=== PATIENT | female | born 1965 | race Two or more races ===

== ENCOUNTER 2016-10-27 12:14 | Emergency (ER) | payer OTHER ==
[2016-10-27 12:20] VITALS: TEMP 98.4; BMI 26.2
--- NOTE | 2016-10-27 13:18 | PDOC ---
History of Present Illness - General Chief Complaint: Sore Throat Stated Complaint: cough, sore throat Time Seen by Provider: 10/27/16 13:03 - History of Present Illness Initial Comments: 10/27/16 13:14 51-year-old female with a past medical history of hypertension She states that she did have the flu shot this year Patient states that yesterday evening, she developed sore throat, dry cough, runny nose, chills without fever, myalgias, and diminished appetite, although she is drinking fluids She denies any vomiting or diarrhea, she denies any fever She denies any abdominal pain She denies any urinary symptoms SHe denies any earache Remainder of the review of systems is negative Past History - Past Medical History Allergies/Adverse Reactions: Allergies Allergy/AdvReac Type Severity Reaction Status Date / Time No Known Allergies Allergy Verified 10/27/16 12:15 Home Medications: Ambulatory Orders Losartan Potassium [Cozaar] 50 mg PO DAILY 10/27/16 HTN: Yes - Immunization History Td Vaccination: No Immunization Up to Date: Yes - Psycho/Social/Smoking Cessation Hx Anxiety: No Suicidal Ideation: No Smoking Status: No Smoking History: Never smoked Number of Cigarettes Smoked Daily: 0 Cigars Per Day: 0 Hx Alcohol Use: No Drug/Substance Use Hx: No Substance Use Type: None Hx Substance Use Treatment: No *Physical Exam - Vital Signs Last Vital Signs Temp Pulse Resp BP Pulse Ox 98.4 F 113 H 16 169/92 100 10/27/16 12:15 10/27/16 12:15 10/27/16 12:15 10/27/16 12:15 10/27/16 12:15 - Physical Exam Comments: 10/27/16 13:15 Physical exam Last Vital Signs Temp Pulse Resp BP Pulse Ox 98.4 F 113 H 16 169/92 100 10/27/16 12:15 10/27/16 12:15 10/27/16 12:15 10/27/16 12:15 10/27/16 12:15 GENERAL: The patient is awake, alert, and fully oriented, and in no apparent distress. HEAD: Normal with no signs of trauma. EYES: Sclera anicteric, conjunctiva normal ENT: Throat is mildly erythematous, without exudate Mucous membranes are moist, TMs nml NECK: Normal range of motion, supple without lymphadenopathy, LUNGS: Breath sounds equal, clear to auscultation bilaterally. No wheezes, and no crackles. HEART: Regular rate and rhythm, normal S1 and S2 without murmur, rub or gallop. ABDOMEN: Soft, nontender, normoactive bowel sounds. No guarding, no rebound. No masses appreciated. NEUROLOGICAL: Cranial nerves II through XII grossly intact. Normal speech, normal gait. Grossly nonfocal neurologic exam PSYCH: Normal mood, normal affect. SKIN: Warm, Dry, no rashes ED Treatment Course - ADDITIONAL ORDERS Additional order review: 10/27/16 12:28 Group A Strep Rapid Antigen - Final Throat Medical Decision Making - Medical Decision Making 10/27/16 13:17 51-year-old female with influenza-like illness She did have the flu shot this year Patient appears mildly dehydrated, and on physical exam, there is no clinical indication for antibiotics at this time Will recheck vital signs Patient is able to drink water without difficulty - drank water bottle 10/27/16 13:44 Vital Signs - 24 hr 10/27/16 10/27/16 12:15 13:37 Temperature 98.4 F Pulse Rate 113 H Pulse Rate [ 94 H Right] Respiratory 16 18 Rate Blood Pressure 169/92 Blood Pressure 151/84 [Left Arm] O2 Sat by Pulse 100 100 Oximetry (%) Influenza swab still pending Strep negative Influenza A and B- negative Yxpcjxewbg-mzkeaduqv-gjbp illness *DC/Admit/Observation/Transfer Diagnosis at time of Disposition: Influenza-like illness - Discharge Dispostion Disposition: HOME Condition at time of disposition: Stable - Referrals Referrals: Ranjith Nascimento MD [Primary Care Provider] - - Patient Instructions Printed Discharge Instructions: Influenza Additional Instructions: Rest, increase fluid intake, Tylenol or Motrin for the chills Any [id number]-[id number] cough and cold preparation if needed ,( Please beware as some of these medications do have extra Tylenol in them) Followup with your primary care physician in 24-48 hours Return immediately if you worsen in any way Take your medications as directed - Post Discharge Activity Work/School Note: Back to Work
[2016-10-27 13:38] VITALS: BP 151/84; PULSE 94
== END 2016-10-27 13:53 | disposition home or self-care (01) ==
LOC: FER 12:14
DX: J11.1 Influenza due to unidentified influenza virus with other respiratory manifestations (principal); I10 Essential (primary) hypertension
CPT/HCPCS: 87070; 87430; 87804; 99282-25

== ENCOUNTER 2017-05-25 12:35 | Emergency (ER) | payer OTHER ==
[2017-05-25 12:49] VITALS: TEMP 97.4; BMI 27.5
--- NOTE | 2017-05-25 13:31 | PDOC ---
History of Present Illness - General Chief Complaint: Headache Stated Complaint: HEADACHE & LEFT UPPER CHEST PAIN Time Seen by Provider: 05/25/17 13:31 - History of Present Illness Initial Comments: 05/25/17 13:41 52yo F hx HTN, headaches p/w progressive pressure like frontal headache wrapping around the back of her head for months, worse last night. Pt reports previous headaches respond to 400mg of motrin, however she reports no relief with motrin last night. The headache became progressively worse last night prompting her to check her BP at work which she found to be 149/90. THis prompted her to take an extra dose of cozaar. +photophobia. This morning, due to persistence of the headache, she took another dose of cozaar and came to the emergency department. She has not seen her PMD or a neurologist for these headaches. Denies any focal weakness. She drinks 3 cups of coffee a day, has not drank any coffee today. Denies any sudden worsening of pain, N/V stiff neck , dizziness, gait instability. Pt also reports 3 seconds of L sternal non radiating non pleuritic dull CP last night that self resolved when she was sitting at work. Denies SOB, abd pain, diaphoresis, headache, LE edema, rashes. Has never had CP before. Denies hx cardiac disease. Social: denies etoh, tobacco, illicit drugs. Works as a nurse Allergies: NKDA Past History - Past Medical History Allergies/Adverse Reactions: Allergies Allergy/AdvReac Type Severity Reaction Status Date / Time No Known Allergies Allergy Verified 10/27/16 12:15 Home Medications: Ambulatory Orders Losartan Potassium [Cozaar] 50 mg PO DAILY 10/27/16 Cholecalciferol (Vitamin D3) [Vitamin D3] 5,000 unit PO HS 05/25/17 HTN: Yes Other medical history: Neck strain. - Immunization History Td Vaccination: No Immunization Up to Date: Yes - Psycho/Social/Smoking Cessation Hx Anxiety: No Suicidal Ideation: No Smoking Status: No Smoking History: Never smoked Number of Cigarettes Smoked Daily: 0 Cigars Per Day: 0 Hx Alcohol Use: No Drug/Substance Use Hx: No Substance Use Type: None Hx Substance Use Treatment: No Review of Systems - Review of Systems Comments:: 05/25/17 14:25 GENERAL/CONSTITUTIONAL: No fever or chills. No weakness. HEAD, EYES, EARS, NOSE AND THROAT: No change in vision. No ear pain or discharge. No sore throat.+photophobia CARDIOVASCULAR: +chest pain, no shortness of breath. RESPIRATORY: No cough, wheezing, or hemoptysis. GASTROINTESTINAL: No nausea, vomiting, diarrhea or constipation. GENITOURINARY: No dysuria, frequency, or change in urination. MUSCULOSKELETAL: No joint or muscle swelling or pain. No neck or back pain. SKIN: No rash NEUROLOGIC: +headache, no vertigo, loss of consciousness, or change in strength/ sensation. ENDOCRINE: No increased thirst. No abnormal weight change. HEMATOLOGIC/LYMPHATIC: No anemia, easy bleeding, or history of blood clots. ALLERGIC/IMMUNOLOGIC: No hives or skin allergy. *Physical Exam - Vital Signs Last Vital Signs Temp Pulse Resp BP Pulse Ox 97.4 F L 98 H 15 148/81 99 05/25/17 12:39 05/25/17 12:39 05/25/17 12:39 05/25/17 12:39 05/25/17 12:39 - Physical Exam Comments: 05/25/17 14:26 GENERAL: Awake, alert, and fully oriented, appears uncomfortable with eyes closed HEAD: No signs of trauma EYES: PERRLA, EOMI, sclera anicteric, conjunctiva clear ENT: Auricles normal inspection, hearing grossly normal, nares patent, oropharynx clear without exudates. Moist mucosa NECK: Normal ROM, supple, no lymphadenopathy, JVD, or masses LUNGS: Breath sounds equal, clear to auscultation bilaterally. No wheezes, and no crackles HEART: Regular rate and rhythm, normal S1 and S2, no murmurs, rubs or gallops ABDOMEN: Soft, nontender, normoactive bowel sounds. No guarding, no rebound. No masses EXTREMITIES: Normal range of motion, no edema. No clubbing or cyanosis. No cords, erythema, or tenderness NEUROLOGICAL: Normal speech, cranial nerves intact, negative pronator drift, 5/ 5 strength in all 4 extremities, normal sensation to light touch in all 4 extremities, normal cerebellar exam, normal gait, normal reflexes and tone SKIN: Warm, Dry, normal turgor, no rashes or lesions noted. Heart Score/ECG Review #1 05/25/17 12:54 NSR, rate 84, normal axis and intervals, no CARSON or TWI ED Treatment Course - LABORATORY CBC & Chemistry Diagram: 05/25/17 14:25 05/25/17 14:25 Medical Decision Making - Medical Decision Making 05/25/17 14:28 52-year-old female history of hypertension presents with progressive headache for months. On exam patient appears uncomfortable but is neurologically intact. Differential includes tension headache versus caffeine withdrawal headache versus mass occupying lesion in the brain. I offered the patient a CT scan however I discussed with her that a CT scan would only be able to detect larger masses and that she would need to see a neurologist for follow-up and workup of her headaches. Low concern for subarachnoid hemorrhage as headache has been gradual in onset, has been present for months, and patient does not have a stiff neck and is neurologically intact. With regards to the patient's chest pain last night, unlikely to be ACS as it lasted only 3 seconds, however the patient does have some risk factors - will check a troponin. Heart score is 2 ( HTN, family hx). EKG wnl -labs -IVF, tylenol, reglan -CTH -CXR -reassess 05/25/17 15:31 CTH with no acute pathology. Mild volume loss which is slightly atypical for patients age. I discussed these findings with the patient and advised her to follow up with a neurologist to which she agrees. Pt reports significant improvement in headache after tylenol, reglan and fluids. Lab tests pending 05/25/17 16:51 Labs unremarkable, including negative troponin. Pt reports complete resolution of headache. I discussed the physical exam findings, ancillary test results and final diagnoses with the patient. I answered all of the patient's questions. The patient was satisfied with the care received and felt comfortable with the discharge plan and treatment plan. The patient will call their primary care physician within 24 hours to arrange follow-up and will return to the Emergency Department with any new, persistent or worsening symptoms. *DC/Admit/Observation/Transfer Diagnosis at time of Disposition: Headache Qualifiers: Headache type: unspecified Headache chronicity pattern: unspecified pattern Intractability: not intractable Qualified Code(s): R51 - Headache - Discharge Dispostion Disposition: HOME Condition at time of disposition: Good Admit: No - Referrals Referrals: Ranjith Nascimento MD [Primary Care Provider] - Juan Valerio DO [Staff Physician] - - Patient Instructions Additional Instructions: Call Dr. Valerio's office for a follow up neurology appointment within 1 week. Follow up with your primary care doctor within 1 week. Remember to stay hydrated and take your medications only as prescribed until you follow up with your primary care doctor. Return to the emergency department immediately for any new or concerning symptoms or if your symptoms get worse. - Attestations Physician Attestion: 05/25/17 16:55 I, Dr. Tony Wilson MD, attest that this document has been prepared under my direction and personally reviewed by me in its entirety. I further attest, that it accurately reflects all work, treatment, procedures and medical decision -making performed by me.
[2017-05-25] MEDS ORDERED: METOCLOPRAMIDE HCL INJECTION 10 MG/2 ML VIAL IVPB ONE (14:13)
[2017-05-25] MEDS ORDERED: ACETAMINOPHEN 1000 MG/100 ML VIAL (NON FORMULARY) IVPB ONE (14:13)
[2017-05-25] MEDS ORDERED: SODIUM CHLORIDE 0.9% 500 ML INFUS.BAG IV ONE (14:13)
[2017-05-25] MEDS ORDERED: ACETAMINOPHEN INJECTION 100 ML IVPB ONE (14:17)
[2017-05-25 15:26] LABS: BASOPHIL 0.5 % (0-2.0); EOSINOPHIL 0.8 % (0-4.5); MCH 30.6 pg (25.7-33.7); MCHC 34.1 g/dl (32.0-36.0); MEAN CELL VOLUME 89.8 fl (80-96); MEAN PLT VOLUME 10.2 fl (7.5-11.1); NEUTROPHILS 60.1 % (42.8-82.8); PLATELET COUNT 254 K/MM3 (134-434); RDW 12.3 % (11.6-15.6); WHITE BLOOD COUNT 8.9 K/mm3 (4.0-10.8)
[2017-05-25 15:37] VITALS: BP 107/62; PULSE 72
[2017-05-25 16:26] LABS: ALBUMIN 4.3 g/dl (3.5-5.0); ALK PHOS 70 U/L (32-92); ANION GAP 10 (8-16); BILIRUBIN,TOTAL 0.3 mg/dl (0.2-1.0); CALCIUM 9.6 mg/dl (8.4-10.2); CO2 28 mmol/L (22-28); CREATININE 0.9 mg/dl (0.6-1.3); GLUCOSE,RANDOM 86 mg/dl (74-106); SGOT/AST 18 U/L (10-42); SGPT/ALT 20 U/L (10-40); TOT PROT 8.2 g/dl (6.4-8.3)
--- NOTE | 2017-05-29 10:36 | EKG ---
Test Reason : Blood Pressure : / mmHG Vent. Rate : 084 BPM Atrial Rate : 084 BPM P-R Int : 138 ms QRS Dur : 068 ms QT Int : 372 ms P-R-T Axes : 080 067 052 degrees QTc Int : 439 ms NORMAL SINUS RHYTHM NO PREVIOUS ECGS AVAILABLE Confirmed by MD BANEGAS MARJORY ([id number]) on 05/29/2017 10:36:12 AM Referred By: Confirmed By:MIKAELA BANEGAS MD
== END 2017-05-25 17:06 | disposition home or self-care (01) ==
LOC: FER 12:35
PROC: 3E0337Z Introduction of Electrolytic and Water Balance Substance into Peripheral Vein, Percutaneous Approach (ICD-10-PCS; principal; 2017-05-25)
PROC: 3E033NZ Introduction of Analgesics, Hypnotics, Sedatives into Peripheral Vein, Percutaneous Approach (ICD-10-PCS; 2017-05-25)
PROC: 3E033GC Introduction of Other Therapeutic Substance into Peripheral Vein, Percutaneous Approach (ICD-10-PCS; 2017-05-25)
DX: R51 Headache (principal); I10 Essential (primary) hypertension
CPT/HCPCS: 36415; 70450-TC; 71020-TC; 80053; 83880; 84484; 85025; 93005; 99283-25

== ENCOUNTER 2019-01-23 22:45 | Emergency (ER) | payer OTHER ==
[2019-01-23 22:53] VITALS: PULSE 77; TEMP 98; BMI 27.6
[2019-01-23] MEDS ORDERED: ACETAMINOPHEN 500 MG TABLET (FP) PO ONE (23:16)
[2019-01-23] MEDS ORDERED: ACETAMINOPHEN 500 MG TABLET (FP) ONE (23:21)
--- NOTE | 2019-01-23 23:46 | PDOC ---
Documentation entered by Gerard Waters SCRIBE, acting as scribe for Venecia Schaffer MD. Venecia Schaffer MD: This documentation has been prepared by the Jt andersen Juan Manue, SCRIBE, under my direction and personally reviewed by me in its entirety. I confirm that the documentation accurately reflects all work, treatment, procedures, and medical decision making performed by me. History of Present Illness - General Chief Complaint: Blood Pressure Problem Stated Complaint: HTN/HEADACHE Time Seen by Provider: 01/23/19 22:50 History Source: Patient Exam Limitations: No Limitations - History of Present Illness Initial Comments: 01/23/19 23:13 The patient is a 53 year old female, who presents to the ED complaining of headache and dizziness since yesterday. She notes that her headaches were mild and intermittent in nature but has progressed to moderate and constant in nature. She reports that the headache is localized in the back of the head and upper neck area. She notes that she took an extra pill of her Metropolol, a baby aspirin and some Advil before coming to the ED. She notes that the light exacerbates her headache. She states that she was at work today and believes that stress at work exacerbated her symptoms. The patient denies chest pain, shortness of breath, fever, chills, nausea, vomiting, diarrhea or constipation. Denies dysuria, frequency, urgency and hematuria. PAST MEDICAL HISTORY: HTN PAST SURGICAL HISTORY: no significant history FAMILY HISTORY: no pertinent history SOCIAL HISTORY: Pt lives with family and is employed. MEDICATIONS: reviewed ALLERGIES: As per nursing notes General: No fevers or chills, no weakness, no weight loss HEENT: No change in vision. No sore throat,. No ear pain CardioVascular: No chest pain or shortness of breath Respiratory:No cough, or wheezing. Gastrointestinal: no nausea, vomiting, diarrhea or constipation, No rectal bleeding Genitourinary: No dysuria, hematuria, or frequency Musculoskeletal: No joint or muscle pain or swelling Neurologic: (+) Headache and dizziness. No loss of consciousness Psychiatric: nor depression Skin: No rashes or easy bruising Endocrine: no increased thirst or abnormal weight change Allergic: no skin or latex allergy All other systems reviewed and normal GENERAL: The patient is awake, alert, and fully oriented, in no acute distress. HEAD: Normal with no signs of trauma. EYES: (+) Photophobia. Pupils equal, round and reactive to light, extraocular movements intact, sclera anicteric, conjunctiva clear. MUSCULOSKELETAL: (+) Tenderness and spams bilateral paraspinal and upper shoulders. No tenderness on palpation on posterior spine. No meningeal signs EXTREMITIES: Normal range of motion, no edema. NEUROLOGICAL: Normal speech, normal gait. PSYCH: Normal mood, normal affect. SKIN: Warm, Dry, normal turgor, no rashes or lesions noted. 01/23/19 23:45 Assessment and plan: This is a 53-year-old female who comes in complaining of headache and dizziness since yesterday. Patient said his got progressively worse this evening when she was struggling to put a Cobian in the patient had been bending over for a long time said that the headache got much worse and was associated with some vertigo Patient was noted to have some mild elevation in her blood pressure for which she had already taken an extra metoprolol Patient's exam was nonfocal Head CT obtained and was normal Patient given Tylenol for the pain 01/24/19 00:14 reevaluation: pt feels better, BP much better, pt discharged. Past History - Past Medical History Allergies/Adverse Reactions: Allergies Allergy/AdvReac Type Severity Reaction Status Date / Time No Known Allergies Allergy Verified 10/27/16 12:15 Home Medications: Ambulatory Orders Losartan Potassium [Cozaar] 50 mg PO DAILY 10/27/16 Cholecalciferol (Vitamin D3) [Vitamin D3] 5,000 unit PO HS 05/25/17 COPD: No HTN: Yes - Immunization History Td Vaccination: No Immunization Up to Date: Yes - Suicide/Smoking/Psychosocial Hx Smoking Status: No Smoking History: Never smoked Number of Cigarettes Smoked Daily: 0 Cigars Per Day: 0 Hx Alcohol Use: No Drug/Substance Use Hx: No Substance Use Type: None Hx Substance Use Treatment: No *Physical Exam - Vital Signs Last Vital Signs Temp Pulse Resp BP Pulse Ox 98 F 77 16 181/91 H 99 01/23/19 22:47 01/23/19 22:47 01/23/19 22:47 01/23/19 22:47 01/23/19 22:47 ED Treatment Course - RADIOLOGY Radiology Studies Ordered: Category Date Time Status HEAD CT WITHOUT CONTRAST [CT] Stat CT Scan 01/23/19 23:30 Taken - Medications Given in the ED: ED Medications Discontinued Medications Generic Name Dose Route Start Last Admin Trade Name Robert PRRoyce Reason Stop Dose Admin Acetaminophen 1,000 mg 01/23/19 23:16 01/23/19 23:23 Tylenol - PO 01/23/19 23:17 1,000 mg ONCE ONE Administration *DC/Admit/Observation/Transfer Diagnosis at time of Disposition: Tension headache Headache Qualifiers: Headache type: tension-type Headache chronicity pattern: unspecified pattern Hypertension Qualifiers: Hypertension type: essential hypertension Qualified Code(s): I10 - Essential ( primary) hypertension - Discharge Dispostion Disposition: HOME Decision to Admit order: No - Referrals Referrals: Ranjith Nascimento MD [Primary Care Provider] - - Patient Instructions Additional Instructions: For the pain take ibuprofen 3 tablets 3 times a day with food don't take on an empty stomach. Return to the emergency department immediately with ANY new, persistent or worsening symptoms. Continue any medications as previously prescribed by your physician. You should follow up with your primary doctor as soon as possible regarding today's emergency department visit. . Please make sure your doctor reviews the results of your emergency evaluation. Thank you for coming to the Emergency Department today for your care. It was a pleasure to see you today. Please note that your evaluation is INCOMPLETE until you follow-up with your doctor. - Post Discharge Activity - Attestations Scribe Attestion: 01/23/19 23:12 Documentation prepared by Gerard Waters, acting as certified medical records coder for Venecia Schaffer MD
[2019-01-24 00:14] VITALS: BP 143/72
== END 2019-01-24 00:19 | disposition home or self-care (01) ==
LOC: FER 22:45
DX: G44.209 Tension-type headache, unspecified, not intractable (principal); I10 Essential (primary) hypertension
CPT/HCPCS: 70450-TC; 82962; 99281-25

== ENCOUNTER 2019-06-23 09:57 | Emergency (ER) | payer OTHER ==
[2019-06-23 10:13] VITALS: PULSE 84; TEMP 98.1; BMI 27.4
[2019-06-23] MEDS ORDERED: ACETAMINOPHEN 325 MG TABLET (FP) PO ONE (10:14)
[2019-06-23] MEDS ORDERED: ACETAMINOPHEN 325 MG TABLET (FP) ONE (10:19)
--- NOTE | 2019-06-23 10:19 | PDOC ---
History of Present Illness - General Chief Complaint: Abscess Boil Stated Complaint: left upper back pain Time Seen by Provider: 06/23/19 10:00 History Source: Patient Exam Limitations: No Limitations - History of Present Illness Initial Comments: 54-year-old female with history of hypertension currently on metoprolol presenting with right upper back pain secondary to skin lesion which has been present for 3 years but had acute exacerbation of pain over the last 3 days associated with a throbbing pain radiating up to her neck worse with palpation. She had been taking Keflex as prescribed by nurse practitioner for presumed infection over the last 3 days. No fevers or chills, chest pain or shortness of breath, nausea vomiting diarrhea or abdominal pain. No known trauma to the area. No allergies. Past History - Past Medical History Allergies/Adverse Reactions: Allergies Allergy/AdvReac Type Severity Reaction Status Date / Time No Known Allergies Allergy Verified 06/23/19 10:08 Home Medications: Ambulatory Orders Metoprolol Succinate [Toprol XL -] 50 mg PO DAILY #14 tablet 06/23/19 Metoprolol Succinate [Toprol Xl -] 50 mg PO DAILY 06/23/19 COPD: No HTN: Yes - Immunization History Td Vaccination: No Immunization Up to Date: Yes - Psycho Social/Smoking Cessation Hx Smoking Status: No Smoking History: Never smoked Number of Cigarettes Smoked Daily: 0 Cigars Per Day: 0 Hx Alcohol Use: No Drug/Substance Use Hx: No Substance Use Type: None Hx Substance Use Treatment: No Review of Systems - Review of Systems Able to Perform ROS?: Yes Comments:: 06/23/19 10:16 Review of Systems Constitutional: no fevers or chills. Chest: no chest pain Resp: no cough, shortness of breath Abdomen: no abdominal pain MUSCULOSKELETAL: No joint pain and swelling. No muscle pain/arthralgias. Back: +back pain, +neck pain SKIN: +skin abscess, lesion, erythema. Hematologic: no easy bruising/bleeding. NEUROLOGIC: No weakness, numbness or tingling. Allergic/Immunologic: no allergies All other systems reviewed and negative, or as documented in HPI. 06/23/19 10:19 *Physical Exam - Vital Signs Last Vital Signs Temp Pulse Resp BP Pulse Ox 98.1 F 84 17 175/88 H 99 06/23/19 09:59 06/23/19 09:59 06/23/19 09:59 06/23/19 09:59 06/23/19 09:59 - Physical Exam Comments: 06/23/19 10:17 physical exam General: NAD, well appearing Resp: no respiratory distress, lungs clear CVS: RRR, no murmur. Abdomen: soft, no tenderness, nondistended Vascular: 2+ DP pulses symmetric and equal. Back: no midline tenderness, no stepoffs, FROM MSK: notable for soft compartments, Cap refill <2 sec. FROM. Sensation grossly intact to light touch. Neuro: alert, no focal neurologic deficits Skin: color normal color, warm and well perfused. Cap refill <2 sec. +right upper back with 2x3cm raised abscess, faint erythema, soft and fluctuant, + tender to palp. Procedures - Incision and Drainage I&D Site: Right: Other Betadine cleansed: Yes Anesthesia: 1% Lidocaine Volume(ml): 2 Blade Size: 11 Attempts: 1 Plain Packing: No Complications: none Progress: 06/23/19 11:07 copious thick white material/purulence expelled Medical Decision Making - Medical Decision Making 06/23/19 11:08 Vital Signs Temp Pulse Resp BP Pulse Ox 98.1 F 84 17 175/88 H 99 06/23/19 09:59 06/23/19 09:59 06/23/19 09:59 06/23/19 09:59 06/23/19 09:59 Patient presenting with infected cyst versus abscess, drained with simple I&D, no complications. does not appear complicated. area demarcated No wound cultures indicated told to finish her antibiotics, Keflex x2 more days. Warm compresses to the area. Monitor for infection. And follow-up with PCP/sales department supervisor for definitive management. Return precautions are provided. Patient also requested metoprolol Rx will provide a 2-week course for her established hypertension. Discharge - Discharge Information Problems reviewed: Yes Clinical Impression/Diagnosis: Infected cyst of skin Condition: Stable Disposition: HOME - Admission No - Additional Discharge Information Prescriptions: Metoprolol Succinate [Toprol XL -] 50 mg PO DAILY #14 tablet - Follow up/Referral Referrals: Ranjith Nascimento MD [Primary Care Provider] - - Patient Discharge Instructions Patient Printed Discharge Instructions: DI for Incision and Drainage of a Skin Abscess Additional Instructions: continue keflex antibiotics for the skin infection and infected cyst, you have 2 more days you should 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 - Post Discharge Activity Work/Back to School Note: Back to Work
[2019-06-23 11:15] VITALS: BP 169/75
== END 2019-06-23 11:16 | disposition home or self-care (01) ==
LOC: FER 09:57
PROC: 0H96XZZ Drainage of Back Skin, External Approach (ICD-10-PCS; principal; 2019-06-23)
DX: L02.212 Cutaneous abscess of back [any part, except buttock and flank] (principal); I10 Essential (primary) hypertension
CPT/HCPCS: 99282-25

== ENCOUNTER 2022-11-10 23:15 | Emergency (ER) | payer SELFPAY ==
[2022-11-10 23:23] VITALS: BP 182/78; PULSE 66; RESP 16; TEMP 98.1; BMI 26.0
[2022-11-10] MEDS ORDERED: IBUPROFEN 400 MG TABLET (FP) PO ONE ×2 (23:34→23:37)
== END 2022-11-10 23:43 | disposition home or self-care (01) ==
LOC: FER 23:15
DX: M54.50 Low back pain, unspecified (principal); M25.511 Pain in right shoulder; W51.XXXA Accidental striking against or bumped into by another person, initial encounter
CPT/HCPCS: 99283-25